=== PATIENT | male | born 1980 | race Caucasian/White ===

== ENCOUNTER 2017-01-11 08:20 | Day surgery (SDC) | END 2017-01-11 15:17 | disposition home or self-care (01) | DX: K40.90 Unilateral inguinal hernia, without obstruction or gangrene, not specified as recurrent (principal); J45.909 Unspecified asthma, uncomplicated | CPT/HCPCS: 49505; C1781; J0690; J1100; J1170; J2250; J2405; J3010; Z7512; Z7610 ==